=== PATIENT | female | born 1940 | race Caucasian/White ===

== ENCOUNTER 2016-08-27 15:40 | Observation (INO) | payer OTHER, MEDICARE ==
--- NOTE | 2016-08-27 15:58 | CPEKG ---
Heart Rate: 120 RR Interval: 500 QRSD Interval: 68 QT Interval: 328 QTC Interval: 464 QRS [place]: 65 T Wave [place]: 29 EKG Severity - ABNORMAL ECG - EKG Impression: ATRIAL FIBRILLATION, V-RATE 77-149 Electronically Signed By: Karthik Guerrier 28-Aug-2016 00:01:02
--- NOTE | 2016-08-27 16:22 | EDPHY ---
H & P Smoking Status: Never smoked Time Seen by Provider: 08/27/16 16:04 HPI/ROS: Chief complaint. Fall, head laceration HPI. 76-year-old female with spring plates in from the patio after she and her are having lunch. The heard her fall and the plates breaking. Went into the kitchen and found the patient face down on the floor unresponsive for about 30 seconds. Patient has no recollection of any preceding symptoms or the fall. She sustained laceration to the left side of her face as well as injury to the left shoulder. She has no chest discomfort or trouble breathing. No fever or cough. She has apparently had some type of intermittent palpitations in the past ROS Constitutional. no fever/chills, no weakness Eyes. no problems with vision ENT. no sore throat, no nasal drainage Cardiovascular. no chest pain Respiratory. no shortness of breath, no cough Abdominal. no abdominal pain, no nausea/vomiting, no diarrhea . no problems urinating MS. Left shoulder pain Skin. Laceration Lymph. no swollen glands Neuro. Headache (Karthik Guerrier) Past Medical/Surgical History: Past medical history shoulder surgery, knee surgery, dyslipidemia (Karthik Guerrier) Social History: , nonsmoker, no alcohol (Karthik Guerrier) Physical Exam: General Appearance: Alert well-developed female moderate distress vital signs are stable Eyes: Pupils equal and round no pallor or injection. ENT, no hemotympanum or Smith sign. No oral pharyngeal or dental trauma. Respiratory: There are no retractions, lungs are clear to auscultation. Cardiovascular: Regular rate and rhythm. Gastrointestinal: Abdomen is soft and nontender, no masses, bowel sounds normal. Neurological: Awake and alert, sensory and motor exams grossly normal. Skin: Laceration to left face Musculoskeletal: Left shoulder pain Extremities symmetrical, full range of motion. Psychiatric: Patient is oriented X 3, there is no agitation. (Karthik Guerrier) Constitutional: Initial Vital Signs Temperature (C) 36.8 C 08/27/16 15:40 Heart Rate 103 H 08/27/16 15:40 Respiratory Rate 16 08/27/16 15:40 Blood Pressure 168/116 H 08/27/16 15:40 O2 Sat (%) 94 08/27/16 15:40 O2 Delivery Mode Room Air Allergies/Adverse Reactions: No Known Allergies Allergy (Unverified 08/27/16 15:48) Home Medications: Medication Instructions Recorded Aspirin EC [Aspirin EC 81 mg (*)] 81 mg PO DAILY 08/27/16 Atorvastatin Calcium [Atorvastatin 40 mg PO HS 08/27/16 Calcium] Calcium Carbonate/Vitamin D3 1 each PO DAILY 08/27/16 [Calcium 500 + Vit D Caplet] Herbals/Supplements -Info Only 1 ea PO DAILY 08/27/16 Medical Decision Making - Diagnostics EKG Interpretation: EKG interpreted by me shows atrial fibrillation with normal axis. QRS is normal there is no significant ST elevation or depression. The ventricular response is 120 (Karthik Guerrier) Imaging: Left shoulder x-ray shows a fracture of the humeral head greater tuberosity nondisplaced Chest x-ray interpreted by me is normal CT head and neck interpreted by me and discussed with Dr. Smith is nonacute (Karthik Guerrier) Procedures: Procedure: Laceration repair. Verbal consent was obtained from the patient. The 4 cm stellate laceration on the left forehead was anesthetized using 1% lidocaine with epinephrine. The wound was carefully irrigated by the emergency department automated equipment engineer technician. Next, the wound was prepped and draped in sterile fashion and explored to its base with a gloved finger. There were no deep structures involved. No tendon injury was identified. No vascular injury was identified. No foreign bodies were identified. The wound was repaired with 6.0 Prolene, 21 simple interrupted sutures. The wound repair was complex. Multiple wound margins required revising. Multiple flaps required alignment. The procedure was performed by myself. Tetanus and antibiotic status were addressed. (Maia Orozco) IV normal saline Morphine for pain. Zofran for nausea Laceration repair by nurse practitioner Ernesto Benites left arm (Karthik Guerrier) ED Course/Re-evaluation: Re-evaluation 6:05 p.m.. Patient is stable. She and I discussed treatment plan including recommendation for admission. She expresses understanding and agreement I consulted and discussed the case with Dr. Ramirez, hospitalist who agrees to the admission I consulted and discussed case with Dr. Hernandez for her shoulder fracture. ( Karthik Guerrier) Differential Diagnosis: Syncope of unclear etiology I. I considered CVA, skull fracture, intracranial bleeding. She has shoulder pain and has a fracture of the proximal humerus. She is in atrial fibrillation and unclear the contributing factor of this as well as whether this is new or paroxysmal. I considered acute coronary syndrome (Karthik Guerrier) - Data Points Laboratory Results: Laboratory Results 08/27/16 17:18 08/27/16 17:18 08/27/16 08/27/16 08/27/16 17:18 17:18 17:18 WBC RBC Hgb Hct MCV MCH MCHC RDW Plt Count MPV Neut % (Auto) Lymph % (Auto) Hernando % (Auto) Eos % (Auto) Baso % (Auto) Nucleat RBC Rel Count Absolute Neuts (auto) Absolute Lymphs (auto) Absolute Monos (auto) Absolute Eos (auto) Absolute Basos (auto) Absolute Nucleated RBC Immature Gran % Immature Gran # PT 14.4 SEC SEC (12.0-15.0) INR 1.13 (0.83-1.16) APTT 29.2 SEC SEC (23.0-38.0) Sodium 139 mEq/L mEq/L (134-144) Potassium 3.9 mEq/L mEq/L (3.5-5.2) Chloride 106 mEq/L mEq/L (97-110) Carbon Dioxide 24 mEq/l mEq/l (22-31) Anion Gap 9 mEq/L mEq/L (8-16) BUN 20 mg/dL mg/dL (7-23) Creatinine 0.7 mg/dL mg/dL (0.6-1.0) Estimated GFR > 60 Glucose 124 mg/dL H mg/dL (70-100) Calcium 9.7 mg/dL mg/dL (8.5-10.4) Troponin I < 0.012 ng/mL ng/mL (0-0.034) TSH 2.870 uIU/mL uIU/mL (0.465-4.680) 08/27/16 17:18 WBC 8.72 10^3/uL 10^3/uL (3.80-9.50) RBC 4.36 10^6/uL 10^6/uL (4.18-5.33) Hgb 14.0 g/dL g/dL (12.6-16.3) Hct 41.4 % % (38.0-47.0) MCV 95.0 fL fL (81.5-99.8) MCH 32.1 pg pg (27.9-34.1) MCHC 33.8 g/dL g/dL (32.4-36.7) RDW 12.5 % % (11.5-15.2) Plt Count 241 10^3/uL 10^3/uL (150-400) MPV 9.6 fL fL (8.7-11.7) Neut % (Auto) 77.6 % H % (39.3-74.2) Lymph % (Auto) 15.4 % % (15.0-45.0) Hernando % (Auto) 4.9 % % (4.5-13.0) Eos % (Auto) 0.8 % % (0.6-7.6) Baso % (Auto) 0.6 % % (0.3-1.7) Nucleat RBC Rel Count 0.0 % % (0.0-0.2) Absolute Neuts (auto) 6.77 10^3/uL H 10^3/uL (1.70-6.50) Absolute Lymphs (auto) 1.34 10^3/uL 10^3/uL (1.00-3.00) Absolute Monos (auto) 0.43 10^3/uL 10^3/uL (0.30-0.80) Absolute Eos (auto) 0.07 10^3/uL 10^3/uL (0.03-0.40) Absolute Basos (auto) 0.05 10^3/uL 10^3/uL (0.02-0.10) Absolute Nucleated RBC 0.00 10^3/uL 10^3/uL (0-0.01) Immature Gran % 0.7 % % (0.0-1.1) Immature Gran # 0.06 10^3/uL 10^3/uL (0.00-0.10) PT INR APTT Sodium Potassium Chloride Carbon Dioxide Anion Gap BUN Creatinine Estimated GFR Glucose Calcium Troponin I TSH Medications Given: Discontinued Medications Sodium Chloride (Ns) 1,000 mls @ 0 mls/hr IV ONCE ONE PRN Reason: Wide Open Stop: 08/27/16 16:40 Last Admin: 08/27/16 17:25 Dose: 1,000 mls Ketorolac Tromethamine (Toradol) 15 mg IVP ONCE ONE Stop: 03/15/17 20:18 Last Admin: 08/27/16 21:58 Dose: 15 mg Morphine Sulfate (Morphine) 4 mg IVP Q1H PRN PRN Reason: Pain, Severe Unable to Take PO Stop: 08/27/16 18:40 Last Admin: 08/27/16 17:26 Dose: 4 mg Ondansetron HCl (Zofran) 4 mg IVP EDNOW ONE Stop: 08/27/16 18:56 Last Admin: 08/27/16 19:20 Dose: 4 mg Departure - Departure Disposition: [facility] Inpatient Acute Clinical Impression: Facial laceration Qualifiers: Encounter type: initial encounter Qualified Code(s): S01.81XA - Laceration without foreign body of other part of head, initial encounter Syncope Qualifiers: Syncope type: unspecified Qualified Code(s): R55 - Syncope and collapse Left humeral fracture Qualifiers: Encounter type: initial encounter Humerus Location: greater tuberosity Atrial fibrillation Qualifiers: Atrial fibrillation type: unspecified Qualified Code(s): I48.91 - Unspecified atrial fibrillation Condition: Fair
[2016-08-27] MEDS ORDERED: NS 1,000 ML IV ONE (16:39)
[2016-08-27] MEDS ORDERED: ONDANSETRON 4 MG/2 ML VIAL IVP PRN ×2 (16:39→18:24)
[2016-08-27 17:37] LABS: % IMMATURE GRANULYOCYTES 0.7 % (0.0-1.1); ABSOLUTE IMMATURE GRANULOCYTES 0.06 10^3/uL (0.00-0.10); ADD DIFF? NO; ADD MORPH? NO; ADD SCAN? NO; ATYPICAL LYMPHOCYTE FLAG 10 (0-99); FRAGMENT RBC FLAG 0 (0-99); HEMATOCRIT 41.4 % (38.0-47.0); LEFT SHIFT FLG 10 (0-99); LIPEMIA HEMOLYSIS FLAG 90 (0-99); MEAN CELL HEMOGLOBIN 32.1 pg (27.9-34.1); MEAN CELL HEMOGLOBIN CONCENTR. 33.8 g/dL (32.4-36.7); MEAN PLATELET VOLUME 9.6 fL (8.7-11.7); PLATELET CLUMPS FLAG 0 (0-99); PLATELET COUNT 241 10^3/uL (150-400); RED BLOOD CELL COUNT 4.36 10^6/uL (4.18-5.33); RED CELL DISTRIBUTION WIDTH 12.5 % (11.5-15.2)
[2016-08-27 17:50] LABS: ANION GAP 9 mEq/L (8-16); CALCIUM 9.7 mg/dL (8.5-10.4); CARBON DIOXIDE 24 mEq/l (22-31); CHLORIDE 106 mEq/L (97-110); CREATININE 0.7 mg/dL (0.6-1.0); GLOMERULAR FILTRATION RATE > 60; GLUCOSE 124 mg/dL (70-100); POTASSIUM 3.9 mEq/L (3.5-5.2); SODIUM 139 mEq/L (134-144)
[2016-08-27 17:58] LABS: APTT 29.2 SEC (23.0-38.0)
[2016-08-27 18:02] LABS: TROPONIN I < 0.012 ng/mL (0-0.034)
[2016-08-27 18:22] LABS: PROTIME(PATIENT) 14.4 SEC (12.0-15.0)
[2016-08-27 18:23] LABS: INR 1.13 (0.83-1.16)
[2016-08-27] MEDS ORDERED: ACETAMINOPHEN 325 MG TAB PO PRN (18:24)
[2016-08-27] MEDS ORDERED: ONDANSETRON DISINTEGRATING 4 MG TAB PO PRN (18:24)
[2016-08-27] MEDS ORDERED: ONDANSETRON 4 MG/2 ML VIAL IVP ONE (18:55)
[2016-08-27] MEDS ORDERED: oxyCODONE IR 5 MG TAB PO PRN (20:17)
[2016-08-27] MEDS ORDERED: KETOROLAC 15 MG/1 ML SDV IVP ONE (20:17)
[2016-08-27] MEDS ORDERED: NS 1,000 ML IV SCH (20:30)
[2016-08-27] MEDS ORDERED: ATORVASTATIN CALCIUM 40 MG TAB PO SCH (21:00)
--- NOTE | 2016-08-27 21:28 | GHP ---
[f rep st] HISTORY AND PHYSICAL DATE OF ADMISSION: 08/27/2016 CHIEF COMPLAINT: Syncope, atrial fibrillation. HISTORY: Patient is a 76-year-old female with history of hyperlipidemia, who presented after a syncopal fall at home. The patient went hiking this morning, feeling fine for approximately 4 miles. Afterwards, she did feel a bit dehydrated. She ate lunch outside and was carrying dishes back in when she suddenly collapsed. She does not have recollection of the events. Her heard the dishes break, but his back was to her during the event. She denied prodromal symptoms, including chest pain, shortness of breath, dizziness or lightheadedness. She did eat breakfast this morning. She does note increased weakness over the last few weeks. She has had palpitations in the past for which she was seen by a medical staff manager and placed on a Holter monitor. She has noticed that her heart has been racing more often over the past several weeks, up to 2 times a week. She has noted increased shortness of breath with hiking, as well. Also new is mild lower extremity edema. The patient suffered a left facial laceration that was sutured. She also had pain in her left arm and x-ray demonstrated left humeral head greater tuberosity fracture. Initial EKG showed atrial fibrillation with a heart rate in the 120s. REVIEW OF SYSTEMS: I completed a 10-point review of systems, except as noted in the HPI. PAST MEDICAL HISTORY: Hyperlipidemia. PAST SURGICAL HISTORY: 1. Right ACL. 2. Right shoulder surgery. 3. Bone spur removal. SOCIAL HISTORY: Lives in [place], drinks 1 to 2 alcoholic drinks a night. No tobacco or illicits. MEDICATIONS: Statin, CoQ enzyme. ALLERGIES: No known drug allergies. FAMILY HISTORY: Father with an SD at age 80. Mother with Parkinson's. PHYSICAL EXAM: VITAL SIGNS: Temperature 36.8, blood pressure 168/116, heart rate 100 to 120, respirations 16, 97% on room air. GENERAL: Patient appears mildly uncomfortable in bed. HEENT: Laceration above the left eye, sutured with mildly oozing blood. EOMI. CV: Irregularly irregular, tachy, systolic ejection murmur. Trace pedal edema. LUNGS: Clear to auscultation bilaterally. ABDOMEN: Soft, nontender, nondistended. Positive bowel sounds. : No [place]. MUSCULOSKELETAL: Limited range of motion left arm secondary to pain in shoulder. NEUROLOGIC: II through XII intact. PSYCHIATRIC: Alert and oriented x3. A little groggy secondary to pain medication. LABS: WBC 8.7, hemoglobin 14 hematocrit 41, platelets 241. INR 1.13. PT 14. Sodium 139, potassium 3.9, chloride 106, carbon dioxide 24, BUN 20, creatinine 0.7, glucose 124, calcium 9.7. Troponin less than 0.02. TSH 2.87. DIAGNOSTIC DATA: EKG personally reviewed by me, atrial fibrillation, heart rate 120. Chest x-ray personally reviewed by me. No evidence of effusion or opacity. CT head personally reviewed, soft tissue laceration above left eye. No intracranial hemorrhage. Cervical spine CT: No acute intracranial abnormality. ASSESSMENT AND PLAN: 1. Syncope. This is secondary to atrial fibrillation and possibly dehydration. 2. Permanent atrial fibrillation: Heart rate now low 100s. Start p.o. diltiazem. The patient's THONY VASc score is 2 based on age and female gender. I explained both Coumadin and Eliquis to patient and her and they want to discuss options. Since symptoms have been occuring > 48 hours, will need 4 weeks anticoagulation prior to considering cardioversion if dose not convert here. Start Lovenox this evening. Will consult Cardiology in the morning. Check TTE. 3. Left greater tuberosity fracture. Nonoperative Orthopedics was consulted in the emergency room. Will ensure pain control. 4. Hyperlipidemia, continue statin. 5. Diet: Regular. 6. Deep vein thrombosis prophylaxis: Lovenox. DISPOSITION: Patient warrants observation admission given acute syncope and atrial fibrillation requiring PCU and telemetry monitoring. /[id number]/MODL MTDD
[2016-08-27] MEDS: DILTIAZEM 30 MG TAB PO SCH (21:58)
[2016-08-28] MEDS: ENOXAPARIN 80 MG/0.8 ML SYR SC SCH ×2 (00:13→09:18)
[2016-08-28] MEDS: oxyCODONE IR 5 MG TAB PO PRN ×2 (00:58→09:18)
[2016-08-28] MEDS: DILTIAZEM 30 MG TAB PO SCH ×2 (05:05→09:18)
[2016-08-28 05:16] LABS: HEMATOCRIT 37.2 % (38.0-47.0); HEMOGLOBIN 12.5 g/dL (12.6-16.3); MEAN CELL HEMOGLOBIN 32.1 pg (27.9-34.1); MEAN CELL HEMOGLOBIN CONCENTR. 33.6 g/dL (32.4-36.7); MEAN CELL VOLUME 95.4 fL (81.5-99.8); RED BLOOD CELL COUNT 3.9 10^6/uL (4.18-5.33); RED CELL DISTRIBUTION WIDTH 12.7 % (11.5-15.2)
[2016-08-28 05:43] LABS: ANION GAP 7 mEq/L (8-16); CALCIUM 8.7 mg/dL (8.5-10.4); CARBON DIOXIDE 22 mEq/l (22-31); CHLORIDE 109 mEq/L (97-110); CREATININE 0.5 mg/dL (0.6-1.0); GLOMERULAR FILTRATION RATE > 60; GLUCOSE 121 mg/dL (70-100); POTASSIUM 4.2 mEq/L (3.5-5.2); SODIUM 138 mEq/L (134-144)
[2016-08-28 05:46] VITALS: TEMP 98.2
[2016-08-28 08:43] VITALS: BP 119/66; PULSE 70; RESP 25; O2SAT 91
[2016-08-28] MEDS ORDERED: Herbals/Supplements -Info Only PO SCH (09:00)
[2016-08-28] MEDS ORDERED: CALCIUM CARB W/VIT D 500 MG TAB PO SCH (09:00)
--- NOTE | 2016-08-28 13:22 | ECHO ---
[id number] + + [address] : : [place] [address] : : [phone] + + Adult Echocardiographic Report + ------+ :Name: LEANNE HALL Zenon Date: 08/28/2016 10:30 AM : : Hospital Admission Number: [id number] Locatio n: 223: :: 1940 Gender: Female Height: 66 in : :Age: 76 yrs Race: WH Weight: 173 lb : :Reason For Study: Syncope/atrial fibrillation : : BSA: 1.9 meters 2 : + ------+ MMode/2D Measurements \T\ Calculations IVSd: 1.1 cm LVIDd: 4.0 cm FS: 37.0 % Ao root diam: LVPWd: 1.1 cm LVIDs: 2.5 cm EDV(Teich): 3.1 cm 71.2 ml LA dimension: ESV(Teich): 4.0 cm 23.2 ml EF(Teich): 67.4 % LVLd ap4: 6.4 cm SV(MOD-sp4): EDV(MOD-sp4): 32.0 ml 45.0 ml LVLs ap4: 6.0 cm ESV(MOD-sp4): 13.0 ml EF(MOD-sp4): 71.1 % Normal Measurement Values: + + :LVIDd (3.5-5.7cm) IVSd (0.6-1.1cm) LVPWd (0.6-1.1cm) Aortic Root (2.0-3.7cm)Left Atrium (1.5-4.0cm): :LV Vol(d) (76-115ml) LV Vol(s) (29-48ml) Ejec Fraction (50-65%)PV Julian (0.6- 1.2m/s) TV Julian (0.4-1.0m/s) : :MV E Julian (0.8-1.0m/s)MV A Julian (0.3-1.0m/s)LVOT Julian (0.7-1.2m/s) Asc Ao Julian ( 0.9-1.8m/s) : + + Doppler Measurements \T\ Calculations MV E max julian: 120.9 cm/sec Ao mean P.9 mmHg TR max julian: 242.8 cm/sec Ao V2 mean: 131.2 cm/secTR max P.6 mmHg Ao V2 VTI: 37.9 cm RAP systole: 10.0 mmHg RVSP(TR): 33.6 mmHg Left Ventricle The left ventricle is normal in size. There is normal left ventricular wall thickness. Left ventricular systolic function is normal. Ejection Fraction = 65-70%. No regional wall motion abnormalities noted. Right Ventricle The right ventricle is normal in size and function. Atria The left atrium is mildly dilated. Right atrial size is normal. The interatrial septum is intact with no evidence for an atrial septal defect. Mitral Valve The mitral valve is normal in structure and function. There is no evidence of mitral valve prolapse. There is no mitral valve stenosis. There is mild mitral regurgitation. Tricuspid Valve Normal tricuspid valve. There is mild tricuspid regurgitation. Right ventricular systolic pressure is normal. Aortic Valve The aortic valve opens well. There is no aortic stenosis. There is no aortic insufficiency. Pulmonic Valve The pulmonic valve is normal in structure and function. Trace pulmonic valvular regurgitation. Great Vessels The aortic root is normal size. Pericardium/Pleural There is no pericardial effusion. Conclusion A complete two-dimensional transthoracic echocardiogram was performed (2D, M-mode, Doppler and color flow Doppler). Left ventricular systolic function is normal. Ejection Fraction = 65-70%. The left atrium is mildly dilated. Normal appearing valvular structures. There is mild mitral regurgitation. There is mild tricuspid regurgitation. Right ventricular systolic pressure is normal. Trace pulmonic valvular regurgitation. Final Reading Physician: Karina Mckeon signed on 08/28/2016 01:20 PM Ordering Physician: Franci Ramirez Performed By: Azeb Maloney RDCS
--- NOTE | 2016-08-28 14:04 | GCON ---
[f rep st] CONSULTATION CARDIOLOGY CONSULTATION DATE OF CONSULTATION: 08/28/2016 REFERRING PHYSICIAN: Francisca Sawant MD REASON FOR CONSULTATION: 1. Syncope. 2. Newly diagnosed persistent atrial fibrillation. HISTORY: The patient is a 76-year-old woman whose only prior cardiac history was PACs diagnosed on outpatient monitoring in 2012. Yesterday, she went on a hike with her , as is their habit. After returning home, she had some lunch on the patio. She got up to take her dishes back inside an d suddenly lost consciousness, collapsing to the ground and sustaining a laceration to the left side of her forehead and a left humeral head fracture. Her heard the crash of the dishes but di d not see her fall. When he reached her a few seconds later, she was minimally conscious and not ar ousable. He called 911. He states that over the course of a couple minutes, she returned to a norm al level of functioning. On presentation to the emergency room, she was in atrial fibrillation with a ventricular rate of 120 bpm. Her troponin was normal. There were no ischemic changes on her ECG . There were no physical exam findings suggestive of CHF. She has never had syncope before. She s aid there were no warning signs. She did not note any associated shortness of breath, palpitations, or chest pain. She says that over the past year or so, she has felt mildly more fatigued than she thinks is appropriate. PAST CARDIAC HISTORY AND TESTING: She was seen by Dr. Miguel in our group in 2012 for an irregula r heart rhythm. An outpatient event monitor demonstrated only PACs. A stress echocardiogram perfor [facility] in 2008 was normal. PAST MEDICAL HISTORY: She is on statin therapy for hyperlipidemia. She has no other ongoing medica l issues. PAST SURGICAL HISTORY: Includes right-sided ACL repair, right shoulder surgery, and bone spur remov al. MEDICATIONS: Atorvastatin 40 mg daily and CoQ10. ALLERGIES: No known drug allergies. SOCIAL HISTORY: She is . Her is with her in her hospital room today. She exercises regularly. She is a nonsmoker. Alcohol consumption is social only. REVIEW OF SYSTEMS: Apart from the episode of syncope that prompted this hospital encounter, a 10-po int review was negative. PHYSICAL EXAMINATION: VITAL SIGNS: Heart rate in the 70s to 80s with atrial fibrillation on the mo nitor. Blood pressure 119/66. GENERAL: Well-developed, well-nourished woman, in no acute distress . She is alert and oriented x3. HEAD AND NECK: She has a sutured laceration over the left forehea d. No scleral icterus. Mucous membranes moist. Carotid pulses 2+, without bruits. There is no JV D. CHEST: Lung de [place] clear to auscultation. CARDIAC: Irregularly irregular rhythm, with no murm ur, gallop, or rub. ABDOMEN: Soft, nontender, nondistended, with normal bowel sounds. EXTREMITIES : 2+ pulses and no peripheral edema. LABORATORY STUDIES: Sodium 138, potassium 4.2, BUN and creatinine 21 and 0.5. TSH is normal at 2.8 7. CBC demonstrates a white blood cell count of 8.04, with a hemoglobin and hematocrit of 12.5 and 37.2. Platelet count is 219,000. ECG: Her admission ECG demonstrates atrial fibrillation with a ventricular rate of 120 bpm. There are no Q-waves or conduction system disturbances. No ischemic changes. Echocardiogram: Please refer to the formal echocardiography report. Briefly, that study demonstrat es normal left ventricular systolic function and no valvular heart disease. IMPRESSION: This is a 76-year-old woman who presents with an episode of syncope and is incidentally found to be in persistent atrial fibrillation with rapid ventricular response of unknown duration. I suspect that her episode of syncope was a culmination of a few factors. Namely, possible mild de hydration from yesterday's hike, combined with her rapid ventricular response in atrial fibrillation , and in conjunction with an orthostatic change in position, likely producing a drop in her blood pr essure. There is no evidence for an acute coronary ischemic event. She has normal left ventricular systolic function and does not demonstrate any evidence of volume overload to suggest CHF. PLAN: She has been started on oral diltiazem, and her rate is now nicely controlled. She has been covered with respect to anticoagulation overnight using subcutaneous Lovenox. She has recently had a meal; therefore, ERICA cardioversion cannot be performed today. I do not think she needs to remain in the hospital for this procedure. At this point, she will be started on Eliquis 5 mg twice daily. She will be given a prescription and a 30-day free trial card. At a later date, we can decide abo ut whether or not to continue with Eliquis versus transitioning to more cost-effective warfarin. Neymar bain short-acting diltiazem will be replaced with diltiazem CD 120 mg daily. My office will contact neymar bain to arrange for an outpatient ERICA cardioversion with me on September 04. /[id number]/MODL
--- NOTE | 2016-08-28 14:54 | GDS ---
[f rep st] DISCHARGE SUMMARY DISCHARGE DIAGNOSES: 1. New onset atrial fibrillation. 2. Syncope secondary to above. 3. Greater tuberosity left humeral fracture. HISTORY: This is a 76-year-old female who had a syncopal episode. HOSPITAL COURSE: The patient was admitted and was found to be in atrial fibrillation. She became r ate controlled with small dose of diltiazem. Restarted her anticoagulation. Cardiology was consult ed and decided to not cardiovert and kept her on diltiazem as well as placed her on Eliquis. The mal diaz will follow up with them in a week. The patient did have a very small fracture of the humeral greater tuberosity. She has been placed i n a sling and will follow up with her orthopedic surgeon, Dr. Hernandez. /[id number]/MODL
== END 2016-08-28 13:40 | disposition home or self-care (01) ==
LOC: EDUNIT# → F2W 20:54
PROVIDERS: ADMIT Internal Medicine; ATTEND Internal Medicine
PROC: 0HQ1XZZ Repair Face Skin, External Approach (ICD-10-PCS; principal; 2016-08-27)
DX: I48.2 Chronic atrial fibrillation (principal); R55 Syncope and collapse; S01.81XA Laceration without foreign body of other part of head, initial encounter; S42.255A Nondisplaced fracture of greater tuberosity of left humerus, initial encounter for closed fracture; W19.XXXA Unspecified fall, initial encounter; Y92.019 Unspecified place in single-family (private) house as the place of occurrence of the external cause; E78.5 Hyperlipidemia, unspecified
CPT/HCPCS: 12013; 70450; 71010; 72125; 73030; 93005; 93306; G0378; J1650; J1885; J2405; 96374

== ENCOUNTER 2016-09-04 13:03 | Day surgery (SDC) | payer OTHER, MEDICARE ==
[2016-09-04] MEDS ORDERED: BENZOCAINE UNIT DOSE SPRAY HURRICAINE MM ONE (13:23)
[2016-09-04] MEDS ORDERED: MIDAZOLAM 2 MG/2 ML VIAL IVP ONE (13:23)
[2016-09-04] MEDS ORDERED: NS 500 ML IV ONE (13:23)
[2016-09-04] MEDS ORDERED: PROPOFOL 200 MG/20 ML VIAL IVP ONE (13:23)
[2016-09-04] MEDS ORDERED: fentaNYL 100 MCG/2 ML INJ IVP ONE (13:23)
--- NOTE | 2016-09-04 13:32 | CPEKG ---
Heart Rate: 100 RR Interval: 600 QRSD Interval: 66 QT Interval: 344 QTC Interval: 444 QRS [place]: 23 T Wave [place]: 31 EKG Severity - ABNORMAL ECG - EKG Impression: ATRIAL FIBRILLATION Electronically Signed By: Geronimo Ronquillo 04-Sep-2016 14:22:57
[2016-09-04 13:52] LABS: INR 1.36 (0.83-1.16); PROTIME(PATIENT) 16.8 SEC (12.0-15.0)
[2016-09-04 13:53] LABS: APTT 34.5 SEC (23.0-38.0)
[2016-09-04 13:55] LABS: ANION GAP 12 mEq/L (8-16); CALCIUM 9.8 mg/dL (8.5-10.4); CARBON DIOXIDE 27 mEq/l (22-31); CHLORIDE 101 mEq/L (97-110); CREATININE 0.6 mg/dL (0.6-1.0); GLOMERULAR FILTRATION RATE > 60; GLUCOSE 114 mg/dL (70-100); MAGNESIUM 1.9 mg/dL (1.6-2.3); POTASSIUM 4.3 mEq/L (3.5-5.2); SODIUM 140 mEq/L (134-144)
--- NOTE | 2016-09-04 15:03 | PDTEE1 ---
ERICA Cardioversion Procedure Procedure: Electrical Cardioversion, Transesophageal Echo Indications: Atrial Fibrillation Consent: Signed and in Chart Anticoagulation: Eliquis Procedural Details: Pads were placed in anterior-posterior position. ERICA probe was advanced and standard images obtained. There is no evidence of left atrial or left atrial appendage thrombus. Synchronized cardioversion attempt #1: 200J Results: Normal sinus rhythm Conclusions: Successful ERICA Cardioversion Patient Problems: Problems Problem Status Onset Atrial fibrillation Acute Facial laceration Acute Left humeral fracture Acute Syncope Acute
--- NOTE | 2016-09-04 16:21 | CPEKG ---
Heart Rate: 77 RR Interval: 779 P-R Interval: 212 QRSD Interval: 68 QT Interval: 388 QTC Interval: 440 P [place]: 36 QRS [place]: 27 T Wave [place]: 34 EKG Severity - BORDERLINE ECG - EKG Impression: SINUS RHYTHM EKG Impression: PROBABLE LEFT ATRIAL ABNORMALITY Electronically Signed By: Geronimo Ronquillo 05-Sep-2016 06:52:09
== END 2016-09-04 16:02 | disposition home or self-care (01) ==
LOC: FCATH 13:03
PROVIDERS: ATTEND Internal Medicine Interventional Cardiology
PROC: B246ZZ4 Ultrasonography of Right and Left Heart, Transesophageal (ICD-10-PCS; principal; 2016-09-04)
PROC: 5A2204Z Restoration of Cardiac Rhythm, Single (ICD-10-PCS; principal; 2016-09-04)
DX: I48.91 Unspecified atrial fibrillation (principal); I10 Essential (primary) hypertension; I25.10 Atherosclerotic heart disease of native coronary artery without angina pectoris
CPT/HCPCS: J2250; J2704

== ENCOUNTER → 2016-09-19 | Outpatient (CLI) | payer OTHER, MEDICARE | LOC: BHFA 11:00 | PROVIDERS: ATTEND Internal Medicine Interventional Cardiology | DX: I48.0 Paroxysmal atrial fibrillation (principal); I49.1 Atrial premature depolarization; R55 Syncope and collapse; E78.5 Hyperlipidemia, unspecified ==

== ENCOUNTER 2016-09-25 12:07 | Day surgery (SDC) | payer OTHER, MEDICARE ==
[2016-09-25] MEDS ORDERED: fentaNYL 100 MCG/2 ML INJ IVP ONE (12:13)
[2016-09-25] MEDS ORDERED: ETOMIDATE 20 MG/10 ML VIAL IVP ONE (12:13)
[2016-09-25] MEDS ORDERED: NS 500 ML IV ONE (12:13)
[2016-09-25] MEDS ORDERED: PROPOFOL 200 MG/20 ML VIAL IVP ONE (12:13)
[2016-09-25] MEDS ORDERED: MIDAZOLAM 2 MG/2 ML VIAL IVP ONE (12:13)
[2016-09-25] MEDS ORDERED: BENZOCAINE UNIT DOSE SPRAY HURRICAINE MM ONE (12:13)
--- NOTE | 2016-09-25 12:32 | CPEKG ---
Heart Rate: 86 RR Interval: 698 QRSD Interval: 84 QT Interval: 408 QTC Interval: 488 QRS [place]: 22 T Wave [place]: 31 EKG Severity - ABNORMAL ECG - EKG Impression: ATRIAL FIBRILLATION EKG Impression: VENTRICULAR PREMATURE COMPLEX EKG Impression: BORDERLINE PROLONGED QT INTERVAL EKG Impression: ATRIAL FIBRILLATION IS NEW IN COMPARISON TO PRIOR ECG Electronically Signed By: Lorenzo Diamond 26-Sep-2016 12:52:43
[2016-09-25 13:03] LABS: INR 1.51 (0.83-1.16); PROTIME(PATIENT) 18.2 SEC (12.0-15.0)
[2016-09-25 13:04] LABS: APTT 35.4 SEC (23.0-38.0)
[2016-09-25] MEDS ORDERED: LIDOCAINE 2% 5 ML SDV ONE (13:25)
[2016-09-25 13:29] LABS: ANION GAP 9 mEq/L (8-16); CALCIUM 9.6 mg/dL (8.5-10.4); CARBON DIOXIDE 28 mEq/l (22-31); CHLORIDE 101 mEq/L (97-110); CREATININE 0.6 mg/dL (0.6-1.0); GLOMERULAR FILTRATION RATE > 60; GLUCOSE 108 mg/dL (70-100); MAGNESIUM 1.9 mg/dL (1.6-2.3); SODIUM 138 mEq/L (134-144)
--- NOTE | 2016-09-25 13:43 | PDTEE1 ---
ERICA Cardioversion Procedure Procedure: Electrical Cardioversion Indications: Atrial Fibrillation Consent: Signed and in Chart Anticoagulation: Eliquis Procedural Details: Pads were placed in anterior-posterior position. No ERICA performed. Prior ERICA was negative for TRINY thrombus and patient has remained on anticoagulation. Synchronized cardioversion attempt #1: 200J Results: Normal sinus rhythm Conclusions: Successful Cardioversion Patient Problems: Problems Problem Status Onset Atrial fibrillation Acute Facial laceration Acute Left humeral fracture Acute Syncope Acute
--- NOTE | 2016-09-25 13:49 | CPEKG ---
Heart Rate: 55 RR Interval: 1091 P-R Interval: 240 QRSD Interval: 80 QT Interval: 460 QTC Interval: 440 P [place]: 29 QRS [place]: 21 T Wave [place]: 43 EKG Severity - ABNORMAL ECG - EKG Impression: SINUS RHYTHM EKG Impression: FIRST DEGREE AV BLOCK EKG Impression: PROBABLE LEFT ATRIAL ABNORMALITY EKG Impression: SINUS RHYTHM HAS REPLACED ATRIAL FIBRILLATION Electronically Signed By: Lorenzo Diamond 26-Sep-2016 12:52:50
== END 2016-09-25 15:00 | disposition home or self-care (01) ==
LOC: FCATH 12:07
PROVIDERS: ATTEND Internal Medicine Interventional Cardiology
PROC: 5A2204Z Restoration of Cardiac Rhythm, Single (ICD-10-PCS; principal; 2016-09-25)
PROC: B245ZZ4 Ultrasonography of Left Heart, Transesophageal (ICD-10-PCS; principal; 2016-09-25)
DX: I48.0 Paroxysmal atrial fibrillation (principal); E78.5 Hyperlipidemia, unspecified; R55 Syncope and collapse; I49.1 Atrial premature depolarization
CPT/HCPCS: J2704

== ENCOUNTER → 2016-11-14 | Outpatient (CLI) | payer OTHER, MEDICARE | LOC: BHLMT 13:15 | PROVIDERS: ATTEND Internal Medicine Interventional Cardiology | DX: I48.0 Paroxysmal atrial fibrillation (principal); I49.1 Atrial premature depolarization; R53.83 Other fatigue; E78.00 Pure hypercholesterolemia, unspecified | CPT/HCPCS: 93005-PO ==

== ENCOUNTER → 2017-01-05 | Outpatient (CLI) | payer OTHER, MEDICARE | LOC: BHFA 09:00 | PROVIDERS: ATTEND Internal Medicine Cardiovascular Disease | DX: I48.91 Unspecified atrial fibrillation (principal) ==

== ENCOUNTER → 2017-01-07 | Outpatient (CLI) | payer OTHER, MEDICARE | LOC: BHFA 08:30 | PROVIDERS: ATTEND Internal Medicine Cardiovascular Disease | DX: I48.91 Unspecified atrial fibrillation (principal) | CPT/HCPCS: 78452; 93017; A9500; J2785 ==

== ENCOUNTER → 2017-07-17 | Outpatient (CLI) | payer OTHER, MEDICARE | LOC: FIMAGING 14:54 | PROVIDERS: ATTEND Physician Assistant | DX: Z12.31 Encounter for screening mammogram for malignant neoplasm of breast (principal); Z13.820 Encounter for screening for osteoporosis; M85.89 Other specified disorders of bone density and structure, multiple sites; E78.5 Hyperlipidemia, unspecified ==

== ENCOUNTER → 2018-08-16 | Outpatient (CLI) | payer OTHER, MEDICARE | LOC: FIMAGING 12:07 | PROVIDERS: ATTEND Physician Assistant | DX: Z12.31 Encounter for screening mammogram for malignant neoplasm of breast (principal) ==